=== PATIENT | male | born 1995 | race Caucasian/White ===

== ENCOUNTER 2017-06-05 19:54 | Emergency (ER) | payer OTHER ==
[2017-06-05 20:41] VITALS: BP 120/70; PULSE 97; TEMP 98.5; BMI 21.4
[2017-06-05] MEDS ORDERED: ALBUTEROL SO4 2.5/IPRATROPIUM 0.5 INH SOL 3 ML VIAL.NEB. NEB ONE ×2 (21:05→21:32)
--- NOTE | 2017-06-05 21:44 | PDOC ---
History of Present Illness - General Chief Complaint: Respiratory Stated Complaint: FLU TYPE SYMPTOMS, COUGH FEVER Time Seen by Provider: 06/05/17 20:52 - History of Present Illness Initial Comments: 06/06/17 02:35 The patient is a 21 year old male, with a significant past medical history of mood disorder, who presents to the emergency department with, cough, sore throat , and body aches. As per patients father he is visiting his mother down here when he had a sudden onset of his symptoms. He describes his cough and productive with yellow sputum. He denies any recent sick contacts. He denies any recent fevers, chills, headache or dizziness. He denies any recent nausea, vomit, diarrhea or constipation. He denies any recent chest pain or shortness of breath. He denies any recent dysuria, frequency, urgency or hematuria. Allergies: Ziprasidone Past surgical history: None reported. Social History: Nonsmoker. Denies EtOH use and recreational drug use. Past History - Past Medical History Allergies/Adverse Reactions: Allergies Allergy/AdvReac Type Severity Reaction Status Date / Time ziprasidone [From [facility]] AdvReac Verified 06/05/17 19:59 Home Medications: Ambulatory Orders Albuterol Sulfate Inhaler - [Ventolin HFA Inhaler -] 1 - 2 inh PO Q4H PRN #1 inhaler 06/05/17 Azithromycin 250 mg PO DAILY #4 tablet 06/05/17 COPD: No Psychiatric Problems: Yes (PSYCHIATRIC HISTORY) - Suicide/Smoking/Psychosocial Hx Smoking History: Never smoked Have you smoked in the past 12 months: No Information on smoking cessation initiated: No Hx Alcohol Use: No Drug/Substance Use Hx: No Substance Use Type: None Review of Systems - Review of Systems Comments:: 06/06/17 02:35 (+)GENERAL/CONSTITUTIONAL: Body aches. No fever or chills. No weakness. (+)HEAD, EYES, EARS, NOSE AND THROAT: Sore throat. No change in vision. No ear pain or discharge. GASTROINTESTINAL: No nausea, vomiting, diarrhea or constipation. GENITOURINARY: No dysuria, frequency, or change in urination. CARDIOVASCULAR: No chest pain or shortness of breath. (+) RESPIRATORY: Cough. No wheezing, or hemoptysis. MUSCULOSKELETAL: No joint or muscle swelling or pain. No neck or back pain. SKIN: No rash NEUROLOGIC: No headache, vertigo, loss of consciousness, or change in strength/ sensation. ENDOCRINE: No increased thirst. No abnormal weight change. HEMATOLOGIC/LYMPHATIC: No anemia, easy bleeding, or history of blood clots. ALLERGIC/IMMUNOLOGIC: No hives or skin allergy. *Physical Exam - Vital Signs Last Vital Signs Temp Pulse Resp BP Pulse Ox 98.5 F 97 H 20 120/70 94 L 06/05/17 20:00 06/05/17 20:00 06/05/17 20:00 06/05/17 20:00 06/05/17 20:00 - Physical Exam Comments: 06/06/17 02:35 GENERAL: Awake, alert, and fully oriented, in no acute distress HEAD: No signs of trauma EYES: PERRLA, EOMI, sclera anicteric, conjunctiva clear ENT: Auricles normal inspection, hearing grossly normal, nares patent, oropharynx clear without exudates. Moist mucosa NECK: Normal ROM, supple, no lymphadenopathy, JVD, or masses (+) LUNGS: Decreased breath sounds at the left base. No wheezes, and no crackles HEART: Regular rate and rhythm, normal S1 and S2, no murmurs, rubs or gallops ABDOMEN: Soft, nontender, normoactive bowel sounds. No guarding, no rebound. No masses EXTREMITIES: Normal range of motion, no edema. No clubbing or cyanosis. No cords , erythema, or tenderness BACK: No midline spinal tenderness in cervical/thoracic/lumbar region NEUROLOGICAL: Normal speech, cranial nerves intact, negative pronator drift, 5/ 5 strength in all 4 extremities, normal sensation to light touch in all 4 extremities, normal cerebellar exam, normal gait, normal reflexes and tone SKIN: Warm, Dry, normal turgor, no rashes or lesions noted. ED Treatment Course - LABORATORY CBC & Chemistry Diagram: 06/05/17 21:36 06/05/17 21:36 - RADIOLOGY Radiology Studies Ordered: Category Date Time Status CHEST PA & LAT [RAD] Stat Radiology 06/05/17 21:05 Taken - Medications Given in the ED: ED Medications Discontinued Medications Generic Name Dose Route Start Last Admin Trade Name Freq PRN Reason Stop Dose Admin Albuterol/Ipratropium 1 amp 06/05/17 21:05 06/05/17 21:37 Duoneb - NEB 06/05/17 21:06 1 amp ONCE ONE Administration Medical Decision Making - Medical Decision Making 06/05/17 21:46 21yo M hx mood disorder presents to the ED with c/o sore throat, cough, and bodyaches. O2 sat 94% on arrival. Lungs with no focal crackles, mildly diminished BS at the left lung base. WIll check CXR for PNA. WIll check basic labs, treat with nebs and reassess. 06/05/17 23:13 Labs with leukocytosis to 12 with 8% bands. Pt feels better after nebulizer tx, O2 sat improved to 98%. CXR mostly clear but lung sounds diminished slightly at L lung base, will treat for PNA. Flu swab neg. First dose azithro given for CAP cvg. Checked interactions btwn azithro and cogentin, benzapril, buproprion ( home meds) with no known interactions. Pt will be DC with close PMD f/u in 1-2 days. Pt is clinically well appearing. I discussed the physical exam findings, ancillary test results and final diagnoses with the patient. I answered all of the patient's questions. The patient was satisfied with the care received and felt comfortable with the discharge plan and treatment plan. The patient will call their primary care physician within 24 hours to arrange follow-up and will return to the Emergency Department with any new, persistent or worsening symptoms. *DC/Admit/Observation/Transfer Diagnosis at time of Disposition: Pneumonia - Discharge Dispostion Disposition: HOME Condition at time of disposition: Stable Admit: No - Prescriptions Prescriptions: Albuterol Sulfate Inhaler - [Ventolin HFA Inhaler -] 1 - 2 inh PO Q4H PRN #1 inhaler PRN Reason: Short Of Breath/Wheezing Azithromycin 250 mg PO DAILY #4 tablet - Referrals - Patient Instructions Printed Discharge Instructions: DI for Pneumonia -- Adult, DI for Acute Bronchitis Additional Instructions: Take the antibiotics as prescribed. Use the inhaler as needed for cough and shortness of breath. As discussed, follow up with your primary doctor in 1-2 days. Return to the emergency department if you have any new, worsening or concerning symptoms. - Post Discharge Activity - Attestations Physician Attestion: 06/06/17 02:37 I, Dr. Christi Ozuna MD, attest that this document has been prepared under my direction and personally reviewed by me in its entirety. I further attest, that it accurately reflects all work, treatment, procedures and medical decision -making performed by me.
[2017-06-05 22:31] LABS: HEMATOCRIT 47.2 % (35.4-49); HEMOGLOBIN 15.8 GM/dl (11.7-16.9); MCH 27.9 pg (25.7-33.7); MCHC 33.4 g/dl (32.0-35.9); MEAN CELL VOLUME 83.4 fl (80-96); MEAN PLT VOLUME 7.6 fl (7.5-11.1); PLATELET COUNT 208 K/MM3 (134-434); RBC 5.66 M/mm3 (4.00-5.60); RDW 12.8 % (11.9-15.9); WHITE BLOOD COUNT 12.7 K/mm3 (4.0-10.8)
[2017-06-05 22:46] LABS: ALBUMIN 4.7 g/dl (3.5-5.0); ALK PHOS 71 U/L (32-92); ANION GAP 9 (8-16); BILIRUBIN,TOTAL 0.8 mg/dl (0.2-1.0); BLOOD UREA NITROGEN 14 mg/dl (7-18); CHLORIDE 101 mmol/L (98-107); CO2 27 mmol/L (22-28); CREATININE 1.1 mg/dl (0.6-1.3); GLUCOSE,RANDOM 88 mg/dl (74-106); SGOT/AST 17 U/L (10-42); SGPT/ALT 13 U/L (10-40); SODIUM 137 mmol/L (136-145); TOT PROT 7.6 g/dl (6.4-8.3)
[2017-06-05 22:56] LABS: PLATELET ESTIMATE ADEQUATE
[2017-06-05] MEDS ORDERED: AZITHROMYCIN 500 MG TABLET PO ONE (23:11)
[2017-06-05] MEDS ORDERED: OSELTAMIVIR PHOSPHATE 75 MG CAPSULE PO ONE (23:12)
[2017-06-05] MEDS ORDERED: AZITHROMYCIN 250 MG TABLET ONE (23:15)
[2017-06-05] MEDS ORDERED: OSELTAMIVIR PHOSPHATE 75 MG CAPSULE ONE (23:15)
== END 2017-06-05 23:26 | disposition home or self-care (01) ==
LOC: FER 19:54
PROC: 3E0F7GC Introduction of Other Therapeutic Substance into Respiratory Tract, Via Natural or Artificial Opening (ICD-10-PCS; principal; 2017-06-05)
DX: J18.9 Pneumonia, unspecified organism (principal)
CPT/HCPCS: 36415; 71046-TC-FY; 80053; 85025; 87804; 99281-25